=== PATIENT | female | born 1965 | race American Indian/Alaskan Native ===

== ENCOUNTER 2018-08-02 13:50 | Emergency (ER) | payer OTHER ==
[2018-08-02] MEDS ORDERED: CATAPRES ONE (16:39)
--- NOTE | 2018-08-02 16:39 | Emergency Department Report ---
Blank Doc - Documentation Documentation: 53 y o Female presents to ED stating she was taking a client to doctors office when she started feeling lightheaded and they checked her BP and it was high, so whe was sent to ER pt has a pmh of HTN taking medication but has been out of medication for about a month. basic labs ordered needs med refill and PCP referral [facility] jean marie
[2018-08-02 17:27] LABS: Hematocrit 41.6 % (30.3-42.9); Hemoglobin 13.8 gm/dl (10.1-14.3); Mean Corpuscular HGB Conc 33 % (30-34); Mean Corpuscular Volume 88 fl (79-97); Platelet Count 388 K/mm3 (140-440); Red Blood Count 4.74 M/mm3 (3.65-5.03); Red Cell Distribution Width 14.9 % (13.2-15.2)
[2018-08-02 17:37] LABS: Alanine Aminotransferase 10 units/L (7-56); BUN/Creatinine Ratio 23; Blood Urea Nitrogen 18 mg/dL (7-17); Calcium 9.5 mg/dL (8.4-10.2); Hemolysis Index 10
[2018-08-02] MEDS ORDERED: CATAPRES PO ONE (19:27)
--- NOTE | 2018-08-02 19:36 | Emergency Department Report ---
ED General Adult HPI - General Chief complaint: High BP Stated complaint: HIGH BP Time Seen by Provider: 08/02/18 19:17 Source: patient, EMS Mode of arrival: Ambulatory Limitations: No Limitations - History of Present Illness Initial comments: 53 y o Female presents to ED stating she was taking a client to doctors office when she started feeling lightheaded and they checked her BP and it was high, so whe was sent to ER pt has a pmh of HTN taking medication but has been out of medication for about a month. basic labs ordered needs med refill and PCP referral [facility] eval, pt denies cp or sob o diaphoresis no n/v , no back pin, dizziness is exacerbated by activity Onset/Timin -: days(s) Location: head, lower extremity Radiation: extremity Severity scale (0 -10): 5 Quality: other (weakness ) Consistency: constant Improves with: rest Worsens with: movement, other (activity ) Associated Symptoms: headaches, malaise, weakness. denies: confusion, chest pain, cough, diaphoresis, fever/chills, loss of appetite, nausea/vomiting, rash, seizure, shortness of breath, syncope Treatments Prior to Arrival: none - Related Data Previous Rx's Medication Instructions Recorded Last Taken Type Cyclobenzaprine HCl [Flexeril 5 MG 5 mg PO Q8HR #15 tablet 01/21/15 Unknown Rx TAB] Ibuprofen [Motrin 800 MG tab] 800 mg PO Q8HR PRN #30 tablet 01/21/15 Unknown Rx Acetaminophen/Codeine [Tylenol 1 tab PO Q6H PRN #20 tab 05/12/18 Unknown Rx /Codeine # 3 tab] Losartan Potassium 100 mg PO QDAY #30 tablet 05/12/18 Unknown Rx Lisinopril [Zestril TAB] 20 mg PO QDAY #30 tablet 08/02/18 Unknown Rx hydroCHLOROthiazide [HCTZ] 25 mg PO QDAY #30 tablet 08/02/18 Unknown Rx Allergies Allergy/AdvReac Type Severity Reaction Status Date / Time No Known Allergies Allergy Verified 08/02/18 14:06 ED Review of Systems ROS: Stated complaint: HIGH BP Other details as noted in HPI Constitutional: malaise, weakness. denies: chills, fever Eyes: denies: eye pain, eye discharge, vision change ENT: denies: ear pain, throat pain Respiratory: denies: cough, shortness of breath, wheezing Cardiovascular: denies: chest pain, palpitations, dyspnea on exertion, orthopnea, syncope, paroxysmal nocturnal dyspnea Endocrine: no symptoms reported Gastrointestinal: denies: abdominal pain, nausea, vomiting, diarrhea Genitourinary: denies: urgency, dysuria, discharge Musculoskeletal: denies: back pain, joint swelling, arthralgia Skin: denies: rash, lesions Neurological: headache, weakness. denies: numbness, paresthesias, confusion, vertigo Psychiatric: denies: anxiety, depression Hematological/Lymphatic: denies: easy bleeding, easy bruising ED Past Medical Hx - Past Medical History Hx Hypertension: Yes Hx Congestive Heart Failure: No Hx Diabetes: No Hx Asthma: No Hx COPD: No Hx HIV: No - Social History Smoking Status: Current Every Day Smoker Substance Use Type: None - Medications Home Medications: Home Medications Medication Instructions Recorded Confirmed Last Taken Type Cyclobenzaprine HCl [Flexeril 5 MG 5 mg PO Q8HR #15 tablet 01/21/15 Unknown Rx TAB] Ibuprofen [Motrin 800 MG tab] 800 mg PO Q8HR PRN #30 tablet 01/21/15 Unknown Rx Acetaminophen/Codeine [Tylenol 1 tab PO Q6H PRN #20 tab 05/12/18 Unknown Rx /Codeine # 3 tab] Losartan Potassium 100 mg PO QDAY #30 tablet 05/12/18 Unknown Rx Lisinopril [Zestril TAB] 20 mg PO QDAY #30 tablet 08/02/18 Unknown Rx hydroCHLOROthiazide [HCTZ] 25 mg PO QDAY #30 tablet 08/02/18 Unknown Rx ED Physical Exam - General Limitations: No Limitations (fall 0 Vicryl) General appearance: alert, in no apparent distress - Head Head exam: Present: atraumatic, normocephalic, normal inspection - Eye Eye exam: Present: normal appearance, PERRL, EOMI Pupils: Present: normal accommodation - ENT ENT exam: Present: normal orophraynx, mucous membranes moist, TM's normal bilaterally, normal external ear exam - Neck Neck exam: Present: normal inspection, full ROM. Absent: tenderness, meningismus, lymphadenopathy, thyromegaly - Respiratory Respiratory exam: Present: normal lung sounds bilaterally. Absent: wheezes, stridor, chest wall tenderness - Cardiovascular Cardiovascular Exam: Present: regular rate, normal rhythm, normal heart sounds. Absent: systolic murmur, diastolic murmur, rubs, gallop - GI/Abdominal GI/Abdominal exam: Present: soft, normal bowel sounds. Absent: tenderness, guarding, rebound, rigid, bruit, hernia - Rectal Rectal exam: Present: deferred - Extremities Exam Extremities exam: Present: normal inspection, full ROM, normal capillary refill. Absent: tenderness, pedal edema, joint swelling, calf tenderness - Back Exam Back exam: Present: normal inspection, full ROM. Absent: tenderness, CVA tenderness (R), CVA tenderness (L), muscle spasm, paraspinal tenderness, vertebral tenderness, rash noted - Neurological Exam Neurological exam: Present: alert, oriented X3, CN II-XII intact, normal gait, reflexes normal. Absent: abnormal gait, motor sensory deficit - Expanded Neurological Exam Expanded Patient oriented to: Present: person, place, time Speech: Present: fluid speech Cranial nerves: EOM's Intact: Normal, Gag Reflex: Normal, Tongue Deviation: Normal, Nystagmus: Normal, Facial Sensation: Normal Cerebellar function: Finger to Nose: Normal, Heel to [place]: Normal, Romberg: Normal Upper motor neuron: Preston Neglect: Normal, Pronator Drift: Normal, Babinski Sign: Normal, Sensory Extinction: Normal Sensory exam: Upper Extremity Light Touch: Normal, Upper Extremity Pin Prick: Normal, Upper Extremity Temperature: Normal, UE 2 Point Discrimination: Normal, Lower Extremity Light Touch: Normal, Lower Extremity Pin Prick: Normal, Lower Extremity Temperature: Normal, LE 2 Point Discrimination: Normal Motor strength exam: RUE: 5, LUE: 5, RLE: 5, LLE: 5 DTR: bicep (R): 2+ (more so we were), bicep (L): 2+, ankle (R): 2+, ankle (L): 2+ ( examining) Best Eye Response (Ghazal): (4) open spontaneously Best Motor Response (Aledo): (6) obeys commands Best Verbal Response (Ghazal): (5) oriented [place] Total: 15 - Psychiatric Psychiatric exam: Present: normal affect, normal mood - Skin Skin exam: Present: warm, dry, intact, normal color. Absent: rash ED Course Vital Signs 08/02/18 14:52 Temperature 98.8 F Pulse Rate 67 Respiratory 19 Rate Blood Pressure 190/98 [Left] O2 Sat by Pulse 99 Oximetry ED Medical Decision Making - Lab Data Result diagrams: 08/02/18 16:54 08/02/18 16:54 - EKG Data EKG shows normal: sinus rhythm, axis, intervals, QRS complexes, ST-T waves (t w ave inversion in inferior and anterior lateral leads ) Rate: normal - Radiology Data Radiology results: report reviewed, image reviewed Findings [facility] [address] [place] [address] Cat Scan Report Signed Patient: BAILEE INTERIANO MR#: [id number] : 1965 Acct:[id number] Age/Sex: 53 / F ADM Date: 08/02/18 Loc: ED Attending Dr: Ordering Physician: LUIS A RUST NP Date of Service: 08/02/18 Procedure(s): CT head/brain wo con Accession Number(s): [id number] cc: LUIS A RUST NP PROCEDURE: CT HEAD/BRAIN WO CON TECHNIQUE: Computerized tomography of the head was performed without contrast material. CT DOSE LENGTH PRODUCT: 1265.7 mGycm HISTORY: dizziness COMPARISONS: None . FINDINGS: Skull and scalp: Normal . Paranasal sinuses: Normal . Ventricles and subarachnoid spaces: Normal . Cerebrum: An irregular area of encephalomalacia is noted in the right parietal region most likely secondary to an old infarct or hemorrhage. Mild degree nonspecific bilateral cerebral white matter hypodensity is noted most likely representing chronic microangiopathy. An acute intra-axial or extra-axial hemorrhage or mass effect is not identified.. Cerebellum and brainstem: No evidence of hemorrhage, acute infarction or mass . Vasculature: Atherosclerotic calcification is noted involving internal carotid and vertebral arteries. . Other: None . ASPECTS: 10 IMPRESSION: No acute intracranial abnormality. This document is electronically signed by Liza Cutler MD., Aug 02 2018 08:24:26 PM ET Transcribed By: [facility] Dictated By: LIZA CUTLER Electronically Authenticated By: LIZA CUTLER Signed Date/Time: 08/02/182025 DD/ 12 TD/TT: 08/02/182012 Referring Physician: LUIS A RUST Patient Name: BAILEE INTERIANO Date of : 1965 Sex: Female Report Date: 2018-08-02 Report Status: Finalized Findings [facility] [address] [place] [address] XRay Report Signed Patient: BAILEE INTERIANO MR#: [id number] : 1965 Acct:[id number] Age/Sex: 53 / F ADM Date: 08/02/18 Loc: ED Attending Dr: Ordering Physician: LUIS A RUST NP Date of Service: 08/02/18 Procedure(s): XR chest routine 2V Accession Number(s): [id number] cc: LUIS A RUST NP Fluoro Time In Minutes: PROCEDURE: XR CHEST ROUTINE 2V TECHNIQUE: PA and lateral views of the chest HISTORY: weakness COMPARISONS: None FINDINGS: There is prominence of the interstitial markings in both lungs with peribronchial thickening, acute versus chronic. There is no definite evidence of focal infiltrate and no evidence of pneumothorax or pleural fluid collection. The cardiac silhouette is enlarged. The thoracic aorta is mildly tortuous. The bony structures are notable for mild dextrocurvature of the thoracic spine. IMPRESSION: 1. Prominence of the interstitial markings with peribronchial thickening, acute versus chronic. 2. Enlarged cardiac silhouette. This document is electronically signed by Ramona Guardado MD., Aug 02 2018 08:55:02 PM ET Transcribed By: ED Dictated By: RAMONA GUARDADO MD Electronically Authenticated By: RAMONA GUARDADO MD Signed Date/Time: 08/02/182056 DD/ 05 TD/TT: 08/02/182006 08 for, pulmonary symptoms and likely small amount of - Medical Decision Making BP is improved , patient denies chest pain no shortness of breath no nausea vomiting no diaphoresis no specific change from previous EKG normal sinus rhythm with inverted T waves in inferior lateral and anterolateral leads patient had cardiac workup in April 2018 to include carotid Doppler echo EF is 55- 60% , carotid doppler: bilateral carotid stenosis less than 50%, patient has data entry and neurologist but again, is not taking BP medicines she's afraid to take losartan because of a recall, previous tolerance with lisinopril, will refill lisinopril and hydrochlorothiazide , patient will follow up with cardiology and neurology as directed patient will return to ED should symptoms worsen, patient DC'd to home in stable condition at this time. pt is a/o x 3 ambulatory with nad at this time. pain is 0/10 Critical care attestation.: If time is entered above; I have spent that time in minutes in the direct care of this critically ill patient, excluding procedure time. ED Disposition Clinical Impression: HTN (hypertension) Qualifiers: Hypertension type: unspecified Qualified Code(s): I10 - Essential (primary) hypertension Disposition: DC-01 TO HOME OR SELFCARE Is pt being admited?: No Does the pt Need Aspirin: No Condition: Stable Instructions: Hypertension (ED) Prescriptions: hydroCHLOROthiazide [HCTZ] 25 mg PO QDAY #30 tablet Lisinopril [Zestril TAB] 20 mg PO QDAY #30 tablet Referrals: JULIETA MULLER MD [Staff Physician] - 3-5 Days BEVERLY ORELLANA MD [Staff Physician] - 3-5 Days JONATHAN ADDISON MD [Referring] - 3-5 Days Forms: Work/School Release Form(ED) Time of Disposition: 21:18
--- NOTE | 2018-08-02 20:26 | Cat Scan Report ---
PROCEDURE: CT HEAD/BRAIN WO CON TECHNIQUE: Computerized tomography of the head was performed without contrast material. CT DOSE LENGTH PRODUCT: 1265.7 mGycm HISTORY: dizziness COMPARISONS: None . FINDINGS: Skull and scalp: Normal . Paranasal sinuses: Normal . Ventricles and subarachnoid spaces: Normal . Cerebrum: An irregular area of encephalomalacia is noted in the right parietal region most likely sec ondary to an old infarct or hemorrhage. Mild degree nonspecific bilateral cerebral white matter hypod ensity is noted most likely representing chronic microangiopathy. An acute intra-axial or extra-axial hemorrhage or mass effect is not identified.. Cerebellum and brainstem: No evidence of hemorrhage, acute infarction or mass . Vasculature: Atherosclerotic calcification is noted involving internal carotid and vertebral arterie s. . Other: None . ASPECTS: 10 IMPRESSION: No acute intracranial abnormality. This document is electronically signed by Timothy Cutler MD., Aug 02 2018 08:24:26 PM ET
--- NOTE | 2018-08-02 20:57 | XRay Report ---
PROCEDURE: XR CHEST ROUTINE 2V TECHNIQUE: PA and lateral views of the chest HISTORY: weakness COMPARISONS: None FINDINGS: There is prominence of the interstitial markings in both lungs with peribronchial thickening, acute v ersus chronic. There is no definite evidence of focal infiltrate and no evidence of pneumothorax or pleural fluid co llection. The cardiac silhouette is enlarged. The thoracic aorta is mildly tortuous. The bony structures are notable for mild dextrocurvature of the thoracic spine. IMPRESSION: 1. Prominence of the interstitial markings with peribronchial thickening, acute versus chronic. 2. Enlarged cardiac silhouette. This document is electronically signed by Ramona Guardado MD., Aug 02 2018 08:55:02 PM ET
[2018-08-02 21:17] LABS: Bacteria,Urine 1+ /HPF (Negative); Bilirubin,Urine NEG (Negative); Blood,Urine NEG (Negative); Color,Urine Yellow (Yellow); Mucus,Urine FEW /HPF; Protein,Urine <15 mg/dL mg/dL (Negative); Urobilinogen,Urine < 2.0 mg/dL (<2.0)
[2018-08-02] MEDS ORDERED: BENADRYL PO ONE (21:30)
[2018-08-02] MEDS ORDERED: HCTZ PO ONE (21:32)
[2018-08-02] MEDS ORDERED: TYLENOL PO ONE (21:33)
[2018-08-02] MEDS ORDERED: ZESTRIL PO ONE (21:33)
[2018-08-02 22:46] VITALS: BP 183/90
== END 2018-08-02 21:44 | disposition home or self-care (01) ==
LOC: ED 13:50
DX: I10 Essential (primary) hypertension (principal); F17.200 Nicotine dependence, unspecified, uncomplicated
CPT/HCPCS: 36415; 70450; 71046; 80053; 81001; 84484; 85027; 93005; 93010

== ENCOUNTER 2018-08-09 07:45 | Inpatient (IN) | payer SELFPAY ==
--- NOTE | 2018-08-09 07:51 | Emergency Department Report ---
- General Stated complaint: CVA Time Seen by Provider: 08/09/18 07:45 Source: patient Mode of arrival: Stretcher Limitations: Physical Limitation - History of Present Illness Initial comments: Patient is a 53-year-old female that presents emergency room with complaints of worsening left-sided weakness and slurred speech. Patient states she woke up at 4:30 AM with the symptoms. Patient states her last known well time was 11:30 yesterday. Patient states she went to bed normal and woke up with the symptoms. Patient denies chest pain shortness of breath. Patient states that she's had a stroke in the past which left her with some left-sided weakness but this is worse. Patient denies fever and chills. Patient denies blurry vision. MD Complaint: focal weakness -: Sudden Location: LUE, LLE Severity: severe Consistency: constant Improves with: none Worsens with: none Associated Symptoms: denies: chest pain, confusion, dark stools, diaphoresis, dysuria, easy bruising, fever/chills, headaches, loss of appetite, nausea/vomiting, myalgias, rash, syncope - Related Data Previous Rx's Medication Instructions Recorded Last Taken Type Losartan Potassium 100 mg PO QDAY #30 tablet 05/12/18 08/08/18 Rx Allergies Allergy/AdvReac Type Severity Reaction Status Date / Time No Known Allergies Allergy Verified 08/02/18 14:06 ED Review of Systems ROS: Stated complaint: CVA Other details as noted in HPI Constitutional: denies: chills, fever Eyes: denies: eye pain, eye discharge, vision change ENT: denies: ear pain, throat pain Respiratory: denies: cough, shortness of breath, wheezing Cardiovascular: denies: chest pain, palpitations Endocrine: no symptoms reported Gastrointestinal: denies: abdominal pain, nausea, diarrhea Genitourinary: denies: urgency, dysuria, discharge Musculoskeletal: denies: back pain, joint swelling, arthralgia Skin: denies: rash, lesions Neurological: weakness. denies: headache, paresthesias Psychiatric: denies: anxiety, depression Hematological/Lymphatic: denies: easy bleeding, easy bruising ED Past Medical Hx - Past Medical History Previous Medical History?: Yes Hx Hypertension: Yes Hx Congestive Heart Failure: No Hx Diabetes: No Hx Asthma: No Hx COPD: No Hx HIV: No - Surgical History Past Surgical History?: No - Family History Family history: no significant - Social History Smoking Status: Current Every Day Smoker Substance Use Type: None - Medications Home Medications: Home Medications Medication Instructions Recorded Confirmed Last Taken Type Losartan Potassium 100 mg PO QDAY #30 tablet 05/12/18 08/09/18 08/08/18 Rx ED Physical Exam - General Limitations: Physical Limitation General appearance: alert, in no apparent distress - Head Head exam: Present: atraumatic, normocephalic - Eye Eye exam: Present: normal appearance, PERRL Pupils: Present: normal accommodation - ENT ENT exam: Present: mucous membranes moist - Neck Neck exam: Present: normal inspection - Respiratory Respiratory exam: Present: normal lung sounds bilaterally. Absent: respiratory distress - Cardiovascular Cardiovascular Exam: Present: regular rate, normal rhythm. Absent: systolic murmur, diastolic murmur, rubs, gallop - GI/Abdominal GI/Abdominal exam: Present: soft, normal bowel sounds. Absent: distended, tenderness - Rectal Rectal exam: Present: deferred - Extremities Exam Extremities exam: Present: normal inspection - Back Exam Back exam: Present: normal inspection - Neurological Exam Neurological exam: Present: alert, oriented X3 - Psychiatric Psychiatric exam: Present: normal affect, normal mood - Skin Skin exam: Present: warm, dry, intact, normal color. Absent: rash - Assessment Assessment Interval: Baseline - Level of Consciousness 1a. Level of Consciousness: alert/keenly responsive - LOC Questions 1b. LOC Questions: answers both correctly - LOC Command 1c. LOC Commands: performs tasks correctly - Best Gaze 2. Best Gaze: normal - Visual 3. Visual: no visual loss - Facial Palsy 4. Facial Palsy: normal symmetrical movement - Motor Arm 5a. Motor Arm Left: drift 5b. Motor Arm Right: no drift - Motor Leg 6a. Motor Leg Left: some gravity effort 6b. Motor Leg Right: no drift - Limb Ataxia 7. Limb Ataxia: absent - Sensory 8. Sensory: mild/moderate sensory loss - Best Language 9. Best Language: no aphasia - Dysarthria 10. Dysarthria: normal - Extinction and Inattention 11. Extinction/Inattention: no abnormality - Scoring Total Score: 4 Stroke Severity: Minor Stroke ED Course Vital Signs 08/09/18 08/09/18 08/09/18 07:55 09:33 10:02 Temperature 98.3 F Pulse Rate 70 75 Respiratory 16 18 18 Rate Blood Pressure 109/73 Blood Pressure 166/78 [Left] O2 Sat by Pulse 98 98 97 Oximetry 08/09/18 14:00 Temperature Pulse Rate 61 Respiratory 18 Rate Blood Pressure Blood Pressure 181/90 [Left] O2 Sat by Pulse 99 Oximetry - Reevaluation(s) Reevaluation #1: Initial evaluation done. Code stroke initiated. Neurology consult. Patient sent for CT of the head 08/09/18 07:50 Discussed results with patient. No changes in patient. Patient's lungs are clear. 08/09/18 08:45 Reevaluation #2: Stressed all results with patient. Patient will be admitted to the hospitalist service. Patient agrees with plan for admission. 08/09/18 09:52 - Consultations Consultation #1: Discussed case with neurologist. Neurologist recommends admission and MRI with and without contrast, aspirin, inflammatory markers due to the patient's history of vasculitis. Neurologist does not recommend CTA in the ER 08/09/18 08:33 Consultation #2: Hospitalist consultation for admission. Hospitalist to admit patient and assume care of patient. Bridge orders place. 08/09/18 09:52 ED Medical Decision Making - Lab Data Result diagrams: 08/09/18 08:10 08/09/18 08:10 - EKG Data -: EKG Interpreted by Ia EKG shows normal: sinus rhythm, axis, intervals, QRS complexes, ST-T waves Rate: normal - EKG Data When compared to previous EKG there are: no significant change - Radiology Data Radiology results: report reviewed CT HEAD WITHOUT CONTRAST: HISTORY: Neurological deficit, stroke. TECHNIQUE: Sequential 2.5mm CT images. COMPARISON: 08/02/18. FINDINGS: Cerebral Parenchyma: Chronic infarct in the right parietal region measuring 2.1 x 1.4 cm is again noted. There are smaller areas of cortical encephalomalacia in the anterior frontal lobes bilaterally. This may be secondary to chronic ischemic infarct or trauma. The remaining brain parenchyma is unremarkable. Mild nonspecific chronic white matter changes are noted in stable. Cerebellum: Within normal limits. Brainstem: Within normal limits. Ventricles: Normal. Sella: Normal. Extra-axial spaces: Normal. Basal Cisterns: Normal. Intracranial Hemorrhage: None. Midline Shift: None. Calvarium: Normal. Sinuses: Normal. Mastoid Air Cells: Normal. Visualized Orbits: Normal. IMPRESSION: No acute intracranial process. Focal chronic infarct/encephalomalacia as described above. Mild nonspecific chronic white matter changes. - Medical Decision Making Is a 53-year-old female Emergency room with left-sided weakness. Culture gram. Neurologist consult for the patient. Neurology believes this is secondary to a vasculitis or worsening of her previous strokes. Patient's initial symptom was worsening left-sided weakness and difficulty speaking. Patient's head CT showed old strokes but no acute findings. Labs unremarkable. Patient admitted to the hospitalist service. Patient will require further neurologic evaluation and further diagnostics. - Differential Diagnosis vasculitis. CVA. Weakness. Dysarthria. Worsening old stroke Critical Care Time: Yes Critical care attestation.: If time is entered above; I have spent that time in minutes in the direct care of this critically ill patient, excluding procedure time. Critical Care Time: 35 minutes ED Disposition Clinical Impression: Left leg weakness, Weakness HTN (hypertension) Qualifiers: Hypertension type: essential hypertension Qualified Code(s): I10 - Essential (primary) hypertension Disposition: 09 OP ADMIT IP TO THIS HOSP Is pt being admited?: Yes Does the pt Need Aspirin: No Condition: Critical Time of Disposition: 09:52
--- NOTE | 2018-08-09 08:04 | Cat Scan Report ---
CT HEAD WITHOUT CONTRAST: HISTORY: Neurological deficit, stroke. TECHNIQUE: Sequential 2.5mm CT images. COMPARISON: 08/02/18. FINDINGS: Cerebral Parenchyma: Chronic infarct in the right parietal region measuring 2.1 x 1.4 cm is again noted. There are smaller areas of cortical encephalomalacia in the anterior frontal lobes bilaterally. This may be secondary to chronic ischemic infarct or trauma. The remaining brain parenchyma is unremarkable. Mild nonspecific chronic white matter changes are noted in stable. Cerebellum: Within normal limits. Brainstem: Within normal limits. Ventricles: Normal. Sella: Normal. Extra-axial spaces: Normal. Basal Cisterns: Normal. Intracranial Hemorrhage: None. Midline Shift: None. Calvarium: Normal. Sinuses: Normal. Mastoid Air Cells: Normal. Visualized Orbits: Normal. IMPRESSION: No acute intracranial process. Focal chronic infarct/encephalomalacia as described above. Mild nonspecific chronic white matter changes. These findings were discussed with Dr. Herrmann in the emergency department at 0755 hours.
[2018-08-09 08:27] LABS: Basophils # (Auto) 0.1 K/mm3 (0.0-0.1); Basophils % (Auto) 1.2 % (0.0-1.8); Eosinophils # (Auto) 0.2 K/mm3 (0.0-0.4); Hematocrit 40.2 % (30.3-42.9); Hemoglobin 13.6 gm/dl (10.1-14.3); Lymphocytes # (Auto) 1.4 K/mm3 (1.2-5.4); Lymphocytes % (Auto) 24.5 % (13.4-35.0); Mean Corpuscular HGB Conc 34 % (30-34); Mean Corpuscular Volume 86 fl (79-97); Monocytes # (Auto) 0.4 K/mm3 (0.0-0.8); Monocytes % (Auto) 7.6 % (0.0-7.3); Platelet Count 379 K/mm3 (140-440); Red Blood Count 4.66 M/mm3 (3.65-5.03); Red Cell Distribution Width 14.5 % (13.2-15.2)
[2018-08-09 08:38] LABS: INR 0.95 (0.87-1.13)
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
[2018-08-09 08:40] LABS: Partial Thromboplastin Time 35.9 Sec. (24.2-36.6)
[2018-08-09] MEDS ORDERED: ASPIRIN PO ONE (08:49)
[2018-08-09 09:04] LABS: BUN/Creatinine Ratio 20; Blood Urea Nitrogen 10 mg/dL (7-17); Calcium 9.2 mg/dL (8.4-10.2); Hemolysis Index 4
--- NOTE | 2018-08-09 09:52 | History and Physical Report ---
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 Patient states that she went to bed normal at night and woke up with the symptoms at 4:30 AM. Patient denies any chest pain shortness of breath, denies fever and chills, no blurry vision. She was evaluated by tele neurology in the ER and recommended to get admitted for further evaluation for possible acute CVA. - Past Medical History Previous Medical History?: Yes Hx Hypertension: Yes Hx Congestive Heart Failure: No Hx Diabetes: No Hx Asthma: No Hx COPD: No Hx HIV: No - Surgical History Past Surgical History?: No - Family History Family history: HTN - Social History Smoking Status: Current Every Day Smoker Substance Use Type: Intermittently smokes marijuana Alcohol abuse: Intermittently drinks alcohol ROS: Constitutional: denies: chills, fever Eyes: denies: eye pain, eye discharge, vision change ENT: denies: ear pain, throat pain Respiratory: denies: cough, shortness of breath, wheezing Cardiovascular: denies: chest pain, palpitations Endocrine: no symptoms reported Gastrointestinal: denies: abdominal pain, nausea, diarrhea Genitourinary: denies: urgency, dysuria, discharge Musculoskeletal: denies: back pain, joint swelling, arthralgia Skin: denies: rash, lesions Neurological: weakness leftside. denies: headache, paresthesias Psychiatric: denies: anxiety, depression Hematological/Lymphatic: denies: easy bleeding, easy bruising Medications and Allergies Allergies Allergy/AdvReac Type Severity Reaction Status Date / Time No Known Allergies Allergy Verified 08/02/18 14:06 Home Medications Medication Instructions Recorded Confirmed Last Taken Type Losartan Potassium 100 mg PO QDAY #30 tablet 05/12/18 08/09/18 08/08/18 Rx Aspirin [Aspirin BABY CHEW TAB] 81 mg PO DAILY #30 tab.chew 08/10/18 Unknown Rx AtorvaSTATin [Lipitor] 40 mg PO QHS #30 tab 08/10/18 Unknown Rx Losartan [Cozaar] 100 mg PO QDAY #30 tablet 05/16/19 Unknown Rx amLODIPine [Norvasc] 10 mg PO DAILY #30 tab 08/10/18 Unknown Rx Exam - Physical Exam Narrative exam: GENERAL: well-developed and well-nourished female lying on bed appeared to be in no discomfort. HEENT: Normocephalic. Atraumatic. No conjunctival congestion or icterus. Patient has moist mucous membranes. NECK: Supple. Trachea midline. CHEST/LUNGS: Clear to auscultated bilaterally, breathing nonlabored. No wheezes crackles or rhonchi. HEART/CARDIOVASCULAR: Regular in rate and rhythm. S1 and S2 positive. ABDOMEN: Abdomen is soft, nontender. Patient has normal bowel sounds. SKIN: There is no rash. Warm and dry. NEURO: Left-sided weakness. Follows command. MUSCULOSKELETAL: No joint effusion or tenderness. EXTRIMITY: No edema, no cyanosis or clubbing. PSYCH: Cooperative. - Constitutional Vitals: Temp Pulse Resp BP Pulse Ox 98.3 F 70 18 109/73 98 08/09/18 07:55 08/09/18 07:55 08/09/18 09:33 08/09/18 07:55 08/09/18 09:33 Results - Labs CBC & Chem 7: 08/09/18 08:10 08/09/18 08:10 Labs: Abnormal lab results 08/09/18 08/09/18 Range/Units 08:10 08:10 Mcdonald % (Auto) 7.6 H (0.0-7.3) % Creatinine 0.5 L (0.7-1.2) mg/dL Glucose 124 H (65-100) mg/dL - Imaging and Cardiology CT Scan - head: report reviewed Assessment and Plan /Possible acute CVA versus vasculitis versus demyelinating disease - - We will admit the patient to remote telemetry - We'll place on aspirin and statin, will consult neurology - CT scan of the head obtained in the ER and shows Focal chronic infarct/encephalomalacia but no acute changes - We will get MRI of the brain, MRA head, carotid Doppler, 2-D echocardiogram - We will also get hemoglobin A1c level and fasting lipid panel - Allow permissive hypertension, will hold BP meds for 24 hours if patient is ta sergio any at home - We'll place on GI prophylaxis to avoid stress ulcer - Place on DVT prophylaxis - Consult PTOT and speech therapist - Keep the patient nothing by mouth for now until clearance by speech therapy - Further management will be based on pending lab results and imaging studies /Ongoing tobacco use; smoking cessation Advised nicotine patch as needed /Alcohol use; strongly advised to quit /Marijuana use; strongly advised to quit /Hypertension; moderate control continue current antihypertensives Radiological data: CT head: No acute intracranial process. Focal chronic infarct/encephalomalacia as described above. Mild nonspecific chronic white matter changes.
[2018-08-09] MEDS ORDERED: MILK OF MAGNESIA PO PRN (13:40)
[2018-08-09] MEDS ORDERED: TYLENOL PO PRN (13:40)
[2018-08-09] MEDS ORDERED: ZOFRAN IV PRN (13:40)
[2018-08-09] MEDS ORDERED: PHENERGAN PR PRN (13:40)
[2018-08-09] MEDS ORDERED: DULCOLAX PR PRN (13:40)
[2018-08-09] MEDS ORDERED: REGLAN PO PRN (13:40)
[2018-08-09] MEDS ORDERED: SODIUM CHLORIDE FLUSH SYRINGE 10 ML IV PRN (13:40)
[2018-08-09] MEDS ORDERED: ATIVAN IV ONE (15:18)
[2018-08-09] MEDS ORDERED: ATIVAN ONE (16:43)
--- NOTE | 2018-08-09 17:13 | Consultation ---
History of Present Illness Consult date: 08/09/18 Chief complaint: left sided weakness History of present illness: This is a 53 YO F with history of stroke who presented with worse left sided w eakness since 4:30 AM. Pt presented out of the window for lytics. On my arrival pt says she is feeling much better, only complaint is she wants to eat. Past History Past Medical History: hypertension, stroke Past Surgical History: No surgical history Social history: smoking Family history: hypertension Medications and Allergies Allergies Allergy/AdvReac Type Severity Reaction Status Date / Time No Known Allergies Allergy Verified 08/02/18 14:06 Home Medications Medication Instructions Recorded Confirmed Last Taken Type Losartan Potassium 100 mg PO QDAY #30 tablet 05/12/18 08/09/18 08/08/18 Rx Active Meds: Active Medications Acetaminophen (Tylenol) 650 mg PO Q4H PRN PRN Reason: Pain, Mild (1-3) Aspirin (Ecotrin) 325 mg PO QDAY MIRNA Atorvastatin Calcium (Lipitor) 80 mg PO QHS MIRNA Bisacodyl (Dulcolax) 10 mg IA QDAY PRN PRN Reason: Constipation Famotidine (Pepcid) 20 mg PO BID MIRNA Losartan Potassium (Cozaar) 100 mg PO QDAY MIRNA Magnesium Hydroxide (Milk Of Magnesia) 30 ml PO Q4H PRN PRN Reason: Constipation Metoclopramide HCl (Reglan) 10 mg PO Q6H PRN PRN Reason: Nausea And Vomiting Ondansetron HCl (Zofran) 4 mg IV Q8H PRN PRN Reason: Nausea And Vomiting Promethazine HCl (Phenergan) 25 mg IA Q6H PRN PRN Reason: Nausea And Vomiting Sodium Chloride (Sodium Chloride Flush Syringe 10 Ml) 10 ml IV PRN PRN PRN Reason: LINE FLUSH Review of Systems Neurological: weakness Physical Examination - Vital Signs Vital Signs: Vital Signs Temp Pulse Resp BP Pulse Ox 98.3 F 70 16 109/73 98 08/09/18 07:55 08/09/18 07:55 08/09/18 07:55 08/09/18 07:55 08/09/18 07:55 - Constitutional General appearance: comfortable - EENT EENT: Present: ATNC, mucous membranes moist - Respiratory Respiratory: Present: lungs clear - Cardiovascular Cardiovascular: Present: regular rate - Gastrointestinal Gastrointestinal: Present: normoactive bowel sounds - Integumentary Integumentary: Present: normal - Neurologic Cranial nerve examination: PERRL, EOMI, V1/V2/V3 grossly intact, face symmetric, tongue midline Speech examination: intact Sensorimotor examination: intact Motor examination - right side: 5/5: biceps, triceps, wrist flexion, wrist extension, negative cutter, hip flexors, knee extensors, dorsiflexion, toe extension (EHL), plantarflexion Motor examination - left side: 4/5: hip flexors, 5/5: biceps, triceps, wrist flexion, wrist extension, negative cutter, knee extensors, dorsiflexion, toe extension (EHL), plantarflexion Reflexes: 1+: ankle, bicep, knee, tricep Results - Laboratory Findings CBC and BMP: 08/09/18 08:10 08/09/18 08:10 Abnormal Lab Findings: Abnormal Labs 08/09/18 08/09/18 08:10 08:10 Mccracken % (Auto) 7.6 H Creatinine 0.5 L Glucose 124 H - Diagnostic Findings Additional findings: CT head encephalopmalacia right parietal, nothing acute Assessment and Plan This is a 53 YO F with worsening left sided weakness, decompensation of previous stroke vs new storke REcommend: MRI/A head, echo , carotids, PT/OT/ST, VTE prophylaxis, permissive htn x 24 hrs, LDL and A1c, Continue care for all medical issues as you are doing Aspirin and statin
[2018-08-09] MEDS: PEPCID PO SCH (21:56)
--- NOTE | 2018-08-09 22:50 | Magnetic Resonance Report ---
PROCEDURE: MR BRAIN WO CON TECHNIQUE: Magnetic resonance imaging of the brain was performed without contrast material. HISTORY: cva COMPARISONS: None . FINDINGS: Skull base and calvarium: Normal . Paranasal sinuses: The visualized paranasal sinuses are clear. Cerebellum: No evidence of hemorrhage, ischemia or mass . Brainstem: No evidence of hemorrhage, ischemia or mass . Cerebrum: No evidence of hemorrhage, acute ischemia or mass . There is focal encephalomalacia in the right parietal lobe suggesting old infarct. There is chronic periventricular deep white matter ische sage gliosis. Diffusion images demonstrate no evidence of acute ischemic event. There is bilateral fro ntal encephalomalacia which could be due to old trauma. Ventricles: There is central and cortical atrophy. There is no hydrocephalus or asymmetry. . Pituitary gland and sella: Normal . Globes and orbits: Normal . Vasculature: Normal arterial and venous flow voids. IMPRESSION: There is focal encephalomalacia in the right parietal lobe suggesting old infarct. There is chronic p eriventricular deep white matter ischemic gliosis. Diffusion images demonstrate no evidence of acute ischemic event. There is bilateral frontal encephalomalacia which could be due to old trauma. There is central and cortical atrophy. There is no hydrocephalus or asymmetry. . . This document is electronically signed by Noble Stock MD., Aug 09 2018 10:48:52 PM ET
--- NOTE | 2018-08-09 22:56 | Magnetic Resonance Report ---
PROCEDURE: MR MRA/MRV HEAD WO CON TECHNIQUE: Axial 3-D [id number] MR angiography of the [place] and brain was performed. The source images were reconstructed in various views using maximum intensity projection. HISTORY: cva COMPARISONS: None . FINDINGS: Vertebral arteries: Normal . Basilar artery: Normal . Internal carotid arteries: Normal . Anterior cerebral arteries: Normal . Middle cerebral arteries: There is intracranial atherosclerosis of the middle cerebral arteries with out significant stenosis. There is no occlusion. . Posterior cerebral arteries: Normal . Branch occlusions: None . Vascular malformations: None . IMPRESSION: There is intracranial atherosclerosis of the middle cerebral arteries without significant stenosis. T here is no occlusion. There is no aneurysm or vascular malformation.. This document is electronically signed by Noble Stock MD., Aug 09 2018 10:54:05 PM ET
[2018-08-10 08:21] LABS: Chol/HDL Ratio 3.44 %
[2018-08-10] MEDS ORDERED: ECOTRIN PO SCH (10:00)
[2018-08-10] MEDS ORDERED: COZAAR PO SCH (10:00)
[2018-08-10] MEDS ORDERED: NON-FORMULARY (Losartan Potassium [Losartan Potassium] 100 MG) PO SCH (10:00)
[2018-08-10] MEDS: PEPCID PO SCH (11:43)
[2018-08-10 12:46] LABS: Amphetamine Screen,Urine PRESUMPTIVE NEGATIVE; Benzodiazepines Screen,Urine PRESUMPTIVE NEGATIVE; Cannabinoid Screen,Urine PRESUMPTIVE NEGATIVE; Methadone Screen,Urine PRESUMPTIVE NEGATIVE; Opiate Screen,Urine PRESUMPTIVE NEGATIVE
--- NOTE | 2018-08-10 13:12 | Discharge Summary ---
Providers - Providers Date of Admission: 08/09/18 09:52 Date of discharge: 08/10/18 Attending physician: CHILO QUINTANA 08/09/18 13:39 Consult to Physician [CONS] Routine Comment: Consulting Provider: SELVIN BAILEY Physician Instructions: Reason For Exam: cva 08/09/18 13:40 Consult to Case Management [CONS] Routine Services Needed at Discharge: Home Health Services Notified:: case management Occupational Therapy Evaluate and Treat [CONS] Routine Comment: Reason For Exam: Neuro deficits Physical Therapy Evaluation and Treat [CONS] Routine Comment: Reason For Exam: Neuro deficits Hospitalization Condition: Stable Hospital course: Patient is a 53-year-old female with a history of hypertension, 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 Patient states that she went to bed normal at night and woke up with the symptoms at 4:30 AM. She was evaluated by tele neurology in the ER and recommended to get admitted for further evaluation for possible acute CVA. Neurology consulted, obtained MRI of the brain, MRA head: showed no acute CVA. She was then discharged in stable condition with outpt followup and recommended to be compliant with meds. Radiological data: CT head: No acute intracranial process. Focal chronic infarct/encephalomalacia as described above. Mild nonspecific chronic white matter changes. MRA brain: There is intracranial atherosclerosis of the middle cerebral arteries without significant stenosis. There is no occlusion. There is no aneurysm or vascular malformation.. MRI brain: There is focal encephalomalacia in the right parietal lobe suggesting old infarct. There is chronic periventricular deep white matter ischemic gliosis. Diffusion images demonstrate no evidence of acute ischemic event. There is bilateral frontal encephalomalacia which could be due to old trauma. There is central and cortical atrophy. There is no hydrocephalus or asymmetry. . . 2d echo preserved EF carotid doppler ; Discharge diagnosis and management: /Possible TIA - admited the patient to remote telemetry - placed on aspirin and statin, consulted neurology - CT scan of the head obtained in the ER and shows no acute process - obtained MRI of the brain, MRA head: showed no acute CVA, s/p carotid Doppler no acute stenosis in ICA, 2-D echocardiogram with preserved EF - Normal hemoglobin A1c level and fasting lipid panel - had workup for vasculitis during previous admission and was normal - Allowed permissive hypertension for 24 hours - patient will do further f/u outpt - recommended compliance with medications /Ongoing tobacco use; smoking cessation Advised nicotine patch as needed /Alcohol use; strongly advised to quit /Marijuana use; strongly advised to quit /Hypertension; continue losartan, added norvasc Disposition: DC-01 TO HOME OR SELFCARE Time spent for discharge: 34 minutes Core Measure Documentation - Palliative Care Palliative Care/ Comfort Measures: Not Applicable - Core Measures Any of the following diagnoses?: stroke - Stroke Discharge Requirements Statin for LDL = or >70 mg/dl on DC: Yes Anticoag for atrial fib/atrial flutter: Not Applicable Antithrombotic for ischemic stroke: Yes Exam - Physical Exam Narrative exam: GENERAL: well-developed and well-nourished female lying on bed appeared to be in no discomfort. HEENT: Normocephalic. Atraumatic. No conjunctival congestion or icterus. Patient has moist mucous membranes. NECK: Supple. Trachea midline. CHEST/LUNGS: Clear to auscultated bilaterally, breathing nonlabored. No wheezes crackles or rhonchi. HEART/CARDIOVASCULAR: Regular in rate and rhythm. S1 and S2 positive. ABDOMEN: Abdomen is soft, nontender. Patient has normal bowel sounds. SKIN: There is no rash. Warm and dry. NEURO: Left-sided weakness at her baseline. Follows command. able to ambulate MUSCULOSKELETAL: No joint effusion or tenderness. EXTRIMITY: No edema, no cyanosis or clubbing. PSYCH: Cooperative. - Constitutional Vitals: Temp Pulse Resp BP Pulse Ox 98.1 F 57 L 20 171/97 98 08/10/18 09:00 08/10/18 11:43 08/10/18 11:59 08/10/18 11:43 08/10/18 10:00 Plan Activity: advance as tolerated Weight Bearing Status: Weight Bear as Tolerated Diet: low fat, low salt Follow up with: [facility] [Other] - 3-5 Days FRANKLIN GARRISON MD [Staff Physician] - 7 Days Prescriptions: AtorvaSTATin [Lipitor] 40 mg PO QHS #30 tab Aspirin [Aspirin BABY CHEW TAB] 81 mg PO DAILY #30 tab.chew Losartan [Cozaar] 100 mg PO QDAY #30 tablet amLODIPine [Norvasc] 10 mg PO DAILY #30 tab
[2018-08-10 13:14] LABS: Cocaine Screen,Urine PRESUMPTIVE POSITIVE
[2018-08-10] MEDS ORDERED: NORVASC PO SCH (14:00)
--- NOTE | 2018-08-10 15:50 | Vascular Lab Report ---
PROCEDURE: VL CAROTID DUPLEX BILAT TECHNIQUE: Carotid duplex Doppler ultrasound. Grayscale, color flow and spectral waveform images wer e obtained. HISTORY: CVA COMPARISON: None FINDINGS: There is a mild to moderate degree of atherosclerotic plaque in ICAs bilaterally. There is no abnorma l elevation in flow velocity seen. Findings indicate no stenosis of hemodynamic significance (less th an 50% stenosis). Vertebral artery flow is antegrade bilaterally. A nonenlarged lymph nodes seen in the right carotid region measuring 1.3 x 1.0 x 0.6 cm. IMPRESSION: No evidence of any stenosis of hemodynamic significance. This document is electronically signed by Tonia Markham MD., Aug 10 2018 03:47:59 PM ET
[2018-08-10 18:47] VITALS: BP 184/92
== END 2018-08-10 19:08 | disposition home or self-care (01) | DRG 69 ==
LOC: ED 07:45 → 4A 09:52
PROVIDERS: ADMIT Internal Medicine; ATTEND Internal Medicine
DX: G45.9 Transient cerebral ischemic attack, unspecified (principal); F17.200 Nicotine dependence, unspecified, uncomplicated; F12.90 Cannabis use, unspecified, uncomplicated; I10 Essential (primary) hypertension; Z71.6 Tobacco abuse counseling; Z72.89 Other problems related to lifestyle; Z71.41 Alcohol abuse counseling and surveillance of alcoholic; Z71.51 Drug abuse counseling and surveillance of drug abuser; Z82.49 Family history of ischemic heart disease and other diseases of the circulatory system; Z79.899 Other long term (current) drug therapy
CPT/HCPCS: 36415; 70450; 70544; 70551; 80048; 80061; 80307; 82962; 83036; 84484; 85025; 85610; 85652; 85670; 85730; 86140; 93005; 93010; 93308; 93321; 93325; 93880; 96374; 99291; 99406; G0378; A9270-GY; J2060

== ENCOUNTER 2019-02-28 14:04 | Emergency (ER) | payer SELFPAY ==
--- NOTE | 2019-02-28 14:13 | Emergency Department Report ---
Blank Doc - Documentation Documentation: 53-year-old female that presents with diffuse headache with right leg pain. HX of CVA. Denies any weakness. Denies any facial drooping. Started last night. Exam: neuro exam within normal limits. normal strength. No facial drooping. This initial assessment/diagnostic orders/clinical plan/treatment(s) is/are subject to change based on patient's health status, clinical progression and re- assessment by fellow clinical providers in the ED. Further treatment and workup at subsequent clinical providers discretion. Patient/guardians urged not to elope from the ED as their condition may be serious if not clinically assessed and managed. Initial orders include: 1- Patient sent to MAIN ED for further evaluation and treatment 2- labs 3- CT head 4- UA
[2019-02-28] MEDS ORDERED: BUTALB/ACETAMINOPHEN/CAFFEINE TAB PO ONE (14:57)
[2019-02-28] MEDS ORDERED: METOCLOPRAMIDE 10 MG/2 ML INJ IV ONE (14:57)
[2019-02-28] MEDS ORDERED: LIDOCAINE (4%) 40 MG/ML TOPICAL SOLN 50 ML BOTTLE TP ONE (14:57)
[2019-02-28] MEDS ORDERED: diphenhydrAMINE 50 MG/ML VIAL IV ONE (14:57)
[2019-02-28] MEDS ORDERED: MAGNESIUM SULFATE 2 GM/50 ML BAG IV ONE (14:57)
--- NOTE | 2019-02-28 14:58 | Emergency Department Report ---
ED General Adult HPI - General Chief complaint: Neuro Symptoms/Deficit Stated complaint: HEADACHE/WEAKNESS IN LEGS Time Seen by Provider: 02/28/19 14:09 Source: patient, RN notes reviewed, old records reviewed Mode of arrival: Ambulatory Limitations: No Limitations - History of Present Illness Initial comments: The patient is a 53-year-old female. This patient is not known to this provider previously. 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 She also has a history of cannabis consumption. Patient admitted to this hospital July 2018 for strokelike symptoms. She had a negative MRI of the brain for acute ischemia. She had a normal 2-D echo, an unremarkable carotid Doppler, and was diagnosed with probable TIA. She was advised to discontinue alcohol consumption, discontinue marijuana consumption, stop smoking, her medications were adjusted, and she was subsequently discharged. Today, the patient presents to the ER with a complaint of headache and "wobbly legs." The headache is frontal and occipital. The headache started yesterday. The headache is not sudden or thunderclap in nature. It did not reach maximal intensity within an hour. It is waxing and waning. It is not the most intense headache of her life. The patient describes her extremity complaint is "my legs gave out on me." She denies focal extremity weakness, numbness, bladder or bowel retention, incontinence, saddle anesthesia, and she makes no complaints of new or different right leg weakness. -: Gradual Location: face Quality: aching Consistency: intermittent Improves with: none Worsens with: none - Related Data Previous Rx's Medication Instructions Recorded Last Taken Type Losartan Potassium 100 mg PO QDAY #30 tablet 05/12/18 08/08/18 Rx Aspirin [Aspirin BABY CHEW TAB] 81 mg PO DAILY #30 tab.chew 02/28/19 Unknown Rx AtorvaSTATin [Lipitor] 40 mg PO QHS #30 tab 02/28/19 Unknown Rx Losartan [Cozaar] 100 mg PO QDAY #30 tablet 02/28/19 Unknown Rx amLODIPine 10 mg PO DAILY #30 tab 02/28/19 Unknown Rx Allergies Allergy/AdvReac Type Severity Reaction Status Date / Time No Known Allergies Allergy Verified 08/02/18 14:06 ED Review of Systems ROS: Stated complaint: HEADACHE/WEAKNESS IN LEGS Other details as noted in HPI Constitutional: denies: fever Eyes: denies: eye discharge ENT: denies: congestion Respiratory: denies: wheezing Cardiovascular: denies: syncope Gastrointestinal: denies: abdominal pain Genitourinary: denies: urgency Musculoskeletal: denies: back pain Skin: denies: lesions Neurological: headache, weakness. denies: numbness, paresthesias, confusion, a bnormal gait ED Past Medical Hx - Past Medical History Previous Medical History?: Yes Hx Hypertension: Yes Hx Congestive Heart Failure: No Hx Diabetes: No Hx Asthma: No Hx COPD: No Hx HIV: No - Surgical History Past Surgical History?: No - Social History Smoking Status: Current Every Day Smoker Substance Use Type: Alcohol - Medications Home Medications: Home Medications Medication Instructions Recorded Confirmed Last Taken Type Losartan Potassium 100 mg PO QDAY #30 tablet 05/12/18 08/09/18 08/08/18 Rx Aspirin [Aspirin BABY CHEW TAB] 81 mg PO DAILY #30 tab.chew 02/28/19 Unknown Rx AtorvaSTATin [Lipitor] 40 mg PO QHS #30 tab 02/28/19 Unknown Rx Losartan [Cozaar] 100 mg PO QDAY #30 tablet 02/28/19 Unknown Rx amLODIPine 10 mg PO DAILY #30 tab 02/28/19 Unknown Rx ED Physical Exam - General Limitations: No Limitations General appearance: alert, in no apparent distress - Head Head exam: Present: atraumatic, normocephalic - Eye Eye exam: Present: normal appearance, PERRL, EOMI, other (visual acuity intact to finger counting, color perception, and reading at the close distance). Absent: nystagmus - ENT ENT exam: Present: normal exam, normal orophraynx, mucous membranes moist, normal external ear exam - Neck Neck exam: Present: normal inspection, full ROM. Absent: tenderness, meningismus - Respiratory Respiratory exam: Present: normal lung sounds bilaterally. Absent: respiratory distress - Cardiovascular Cardiovascular Exam: Present: regular rate, normal rhythm, normal heart sounds. Absent: bradycardia, tachycardia, irregular rhythm, systolic murmur, diastolic murmur, rubs, gallop - GI/Abdominal GI/Abdominal exam: Present: soft. Absent: distended, tenderness, guarding, rebound, rigid, pulsatile mass - Extremities Exam Extremities exam: Present: normal inspection, full ROM, other (2+ pulses noted in the bilateral upper and lower extremities. There is no palpable cord. negative Homans sign. Muscular compartments are soft. The pelvis is stable.). Absent: pedal edema, joint swelling, calf tenderness - Back Exam Back exam: Present: normal inspection, full ROM. Absent: tenderness, CVA tenderness (R), CVA tenderness (L) - Neurological Exam Neurological exam: Present: alert, oriented X3, normal gait, other (there is no facial droop. The tongue is midline. Extraocular movements are intact bilatera lly. There is 5 out of 5 strength in bilateral upper and lower extremities. Sensation is intact to light touch bilateral upper and lower extremities. There is no past-pointing. There is no pronator drift. There is normal [id number]. There is a normal gait.). Absent: motor sensory deficit - Psychiatric Psychiatric exam: Present: anxious - Skin Skin exam: Present: warm, dry, intact, normal color. Absent: rash ED Course Vital Signs 02/28/19 02/28/19 02/28/19 14:09 15:12 15:41 Temperature 97.6 F Pulse Rate 77 Respiratory 18 17 16 Rate Blood Pressure 186/94 O2 Sat by Pulse 100 Oximetry 02/28/19 02/28/19 02/28/19 15:46 16:00 16:16 Temperature Pulse Rate 71 71 68 Respiratory 15 16 17 Rate Blood Pressure 146/85 138/82 138/82 O2 Sat by Pulse 97 95 97 Oximetry 02/28/19 02/28/19 02/28/19 16:30 16:46 17:12 Temperature Pulse Rate 66 89 89 Respiratory 17 28 H Rate Blood Pressure 138/82 138/82 138/82 O2 Sat by Pulse 97 93 Oximetry 02/28/19 02/28/19 17:13 17:30 Temperature Pulse Rate 89 69 Respiratory 14 Rate Blood Pressure 138/82 138/82 O2 Sat by Pulse 96 Oximetry - Reevaluation(s) Reevaluation #1: 02/28/19 16:34 Differential diagnosis, including not limited to: Migraine headache, tension headache, cluster headache, medication noncompliance Assessment and plan: 53-year-old female with a complaint of nonspecific headache, and her legs giving out on her. She is afebrile with reassuring vital signs, with the exception of elevated blood pressure. She has requested a refill on her blood pressure medication. Her neurologic examination is unremarkable, she is clinically sober, GCS of 15, NIH score of 0. CT scan of the brain is negative for acute disease. The patient was treated supportively and symptomatically. She is currently resting comfortable me on her stretcher, and in no acute distress. EKG unchanged from prior. We will refill the patient's medications at her request. There are no irritative or obstructive urinary symptoms, and she is clinically sober at this time. Reevaluation #2: 02/28/19 17:04 Vital signs unremarkable. Laboratory studies unremarkable. Resting comfortably, and in no acute distress. Suitable for discharge at this point in time. Importance of lifestyle modifications is conveyed to the patient in written instruction, she will need to follow-up as an outpatient with primary care and/or neurology. ED Medical Decision Making - Lab Data Result diagrams: 02/28/19 15:28 02/28/19 15:28 Vital Signs 02/28/19 02/28/19 02/28/19 14:09 15:12 15:41 Temperature 97.6 F Pulse Rate 77 Respiratory 18 17 16 Rate Blood Pressure 186/94 O2 Sat by Pulse 100 Oximetry Vital Signs 02/28/19 02/28/19 02/28/19 14:09 15:12 15:41 Temperature 97.6 F Pulse Rate 77 Respiratory 18 17 16 Rate Blood Pressure 186/94 O2 Sat by Pulse 100 Oximetry Lab Results 02/28/19 Range/Units 15:28 WBC 6.9 (4.5-11.0) K/mm3 RBC 4.94 (3.65-5.03) M/mm3 Hgb 14.3 (10.1-14.3) gm/dl Hct 43.4 H (30.3-42.9) % MCV 88 (79-97) fl MCH 29 (28-32) pg MCHC 33 (30-34) % RDW 14.4 (13.2-15.2) % Plt Count 343 (140-440) K/mm3 Lymph % (Auto) 23.7 (13.4-35.0) % [place] % (Auto) 5.6 (0.0-7.3) % Eos % (Auto) 1.8 (0.0-4.3) % Baso % (Auto) 0.9 (0.0-1.8) % Lymph # 1.6 (1.2-5.4) K/mm3 [place] # 0.4 (0.0-0.8) K/mm3 Eos # 0.1 (0.0-0.4) K/mm3 Baso # 0.1 (0.0-0.1) K/mm3 Seg Neutrophils % 68.0 (40.0-70.0) % Seg Neutrophils # 4.7 (1.8-7.7) K/mm3 Vital Signs 02/28/19 02/28/19 02/28/19 14:09 15:12 15:41 Temperature 97.6 F Pulse Rate 77 Respiratory 18 17 16 Rate Blood Pressure 186/94 O2 Sat by Pulse 100 Oximetry 02/28/19 02/28/19 02/28/19 15:46 16:00 16:16 Temperature Pulse Rate 71 71 68 Respiratory 15 16 17 Rate Blood Pressure 146/85 138/82 138/82 O2 Sat by Pulse 97 95 97 Oximetry 02/28/19 02/28/19 16:30 16:46 Temperature Pulse Rate 66 89 Respiratory 17 28 H Rate Blood Pressure 138/82 138/82 O2 Sat by Pulse 97 93 Oximetry Lab Results 02/28/19 02/28/19 02/28/19 Range/Units 15:28 15:28 15:28 WBC 6.9 (4.5-11.0) K/mm3 RBC 4.94 (3.65-5.03) M/mm3 Hgb 14.3 (10.1-14.3) gm/dl Hct 43.4 H (30.3-42.9) % MCV 88 (79-97) fl MCH 29 (28-32) pg MCHC 33 (30-34) % RDW 14.4 (13.2-15.2) % Plt Count 343 (140-440) K/mm3 Lymph % (Auto) 23.7 (13.4-35.0) % [place] % (Auto) 5.6 (0.0-7.3) % Eos % (Auto) 1.8 (0.0-4.3) % Baso % (Auto) 0.9 (0.0-1.8) % Lymph # 1.6 (1.2-5.4) K/mm3 [place] # 0.4 (0.0-0.8) K/mm3 Eos # 0.1 (0.0-0.4) K/mm3 Baso # 0.1 (0.0-0.1) K/mm3 Seg Neutrophils % 68.0 (40.0-70.0) % Seg Neutrophils # 4.7 (1.8-7.7) K/mm3 Sodium 140 (137-145) mmol/L Potassium 3.7 (3.6-5.0) mmol/L Chloride 99.8 (98-107) mmol/L Carbon Dioxide 24 (22-30) mmol/L Anion Gap 20 mmol/L BUN 12 (7-17) mg/dL Creatinine 0.7 (0.7-1.2) mg/dL Estimated GFR > 60 ml/min BUN/Creatinine Ratio 17 % Glucose 126 H (65-100) mg/dL Calcium 9.7 (8.4-10.2) mg/dL Total Bilirubin 0.60 (0.1-1.2) mg/dL AST 24 (5-40) units/L ALT 8 (7-56) units/L Alkaline Phosphatase 97 (35-129) units/L Total Creatine Kinase 68 (30-135) units/L Troponin T < 0.010 (0.00-0.029) ng/mL Total Protein 8.4 H (6.3-8.2) g/dL Albumin 4.5 (3.9-5) g/dL Albumin/Globulin Ratio 1.2 % - EKG Data -: EKG Interpreted by [place] EKG shows normal: sinus rhythm Rate: normal - EKG Data 02/28/19 16:34 The EKG today shows a sinus rhythm, 69 bpm, normal axis, the QTC is 431 ms, there is high left ventricular voltage, there is low voltage in the lateral leads, the EKG is abnormal, it is not consistent with ST elevation myocardial infarction, it is unchanged from prior EKG from 08/09/2018. - Radiology Data Radiology results: report reviewed, image reviewed Print Report Referring Physician: MARY MITCHELL Patient Name: BAILEE INTERIANO Date of : 1965 Sex: Female Report Date: 2019-02-28 Report Status: Finalized Findings [facility] [address] [place] [address] Cat Scan Report Signed Patient: BAILEE INTERIANO MR#: [id number] : 1965 Acct:[id number] Age/Sex: 53 / F ADM Date: 02/28/19 Loc: ED Attending Dr: Ordering Physician: MARY MITCHELL NP Date of Service: 02/28/19 Procedure(s): CT head/brain wo con Accession Number(s): [id number] cc: MARY MITCHELL NP CT HEAD WITHOUT CONTRAST INDICATION : headache. TECHNIQUE: Axial imaging performed from the skull apex through the skull base without the use of contrast. Sagittal and coronal reformatted images. All CT scans at this location are performed using CT dose reduction for ALARA by means of automated exposure control. COMPARISON: 08/09/2018 FINDINGS: Parenchyma: Chronic encephalomalacia in the bifrontal regions and right parietal lobe are again noted. Mild nonspecific chronic white matter changes are stable. The remaining brain parenchyma is within normal limits. No evidence for acute infarct, hemorrhage, mass or extra-axial fluid collection. Ventricles: Ventricles are normal in size and appear symmetric. Bones: No acute osseous abnormality. Sinuses: Sinuses and mastoid air cells are clear. Soft tissues: Soft tissues including the orbits appear normal. IMPRESSION: Chronic findings as described above which are unchanged since 08/09/2018. Signer Name: Yuniel Fualkner Jr, MD Signed: 02/28/2019 3:03 PM Workstation Name: [id number] Transcribed By: TTR Dictated By: YUNIEL FAULKNER JR, MD Electronically Authenticated By: YUNIEL FAULKNER JR, MD Signed Date/Time: 02/28/19 1503 DD/ 1501 TD/TT: Critical care attestation.: If time is entered above; I have spent that time in minutes in the direct care of this critically ill patient, excluding procedure time. ED Disposition Clinical Impression: History of headache, HTN (hypertension), Medication refill Disposition: DC-01 TO HOME OR SELFCARE Is pt being admited?: No Does the pt Need Aspirin: No Condition: Stable Instructions: Hypertension (ED) Additional Instructions: Take the medications as prescribed and directed. Recommend the patient avoid consumption of marijuana, alcohol, and tobacco. Recommend patient follow up with the primary care doctor or neurologist within the next 2-3 weeks. Return to the emergency room right away with projectile vomiting, change in mental sta tus, confusion, inability to tolerate liquid feeds, new, worsening or different symptoms not present on initial emergency room evaluation. Long-term complications of hypertension and elevated blood pressure includes stroke, heart attack, disability, paralysis, loss of quality of life. Therefore, it is very important to remain compliant with blood pressure medications. Prescriptions: AtorvaSTATin [Lipitor] 40 mg PO QHS #30 tab amLODIPine 10 mg PO DAILY #30 tab Aspirin [Aspirin BABY CHEW TAB] 81 mg PO DAILY #30 tab.chew Losartan [Cozaar] 100 mg PO QDAY #30 tablet Referrals: JONATHAN ADDISON MD [Referring] - 3-5 Days RBAYDON UNGER MD [Staff Physician] - 3-5 Days JAVED FRANCO MD [Staff Physician] - 3-5 Days [facility] [Provider Group] - 3-5 Days Forms: Work/School Release Form(ED)
--- NOTE | 2019-02-28 15:07 | Cat Scan Report ---
CT HEAD WITHOUT CONTRAST INDICATION : headache. TECHNIQUE: Axial imaging performed from the skull apex through the skull base without the use of con trast. Sagittal and coronal reformatted images. All CT scans at this location are performed using C T dose reduction for ALARA by means of automated exposure control. COMPARISON: 08/09/2018 FINDINGS: Parenchyma: Chronic encephalomalacia in the bifrontal regions and right parietal lobe are again note d. Mild nonspecific chronic white matter changes are stable. The remaining brain parenchyma is within normal limits. No evidence for acute infarct, hemorrhage, mass or extra-axial fluid collection. Ventricles: Ventricles are normal in size and appear symmetric. Bones: No acute osseous abnormality. Sinuses: Sinuses and mastoid air cells are clear. Soft tissues: Soft tissues including the orbits appear normal. IMPRESSION: Chronic findings as described above which are unchanged since 08/09/2018. Signer Name: Yuniel Faulkner Jr, MD Signed: 02/28/2019 3:03 PM Workstation Name: [id number]
[2019-02-28 16:20] LABS: Basophils # (Auto) 0.1 K/mm3 (0.0-0.1); Basophils % (Auto) 0.9 % (0.0-1.8); Eosinophils # (Auto) 0.1 K/mm3 (0.0-0.4); Eosinophils % (Auto) 1.8 % (0.0-4.3); Hematocrit 43.4 % (30.3-42.9); Hemoglobin 14.3 gm/dl (10.1-14.3); Lymphocytes # (Auto) 1.6 K/mm3 (1.2-5.4); Lymphocytes % (Auto) 23.7 % (13.4-35.0); Mean Corpuscular HGB Conc 33 % (30-34); Mean Corpuscular Volume 88 fl (79-97); Monocytes # (Auto) 0.4 K/mm3 (0.0-0.8); Monocytes % (Auto) 5.6 % (0.0-7.3); Platelet Count 343 K/mm3 (140-440); Red Blood Count 4.94 M/mm3 (3.65-5.03); Red Cell Distribution Width 14.4 % (13.2-15.2)
[2019-02-28 16:33] LABS: Alanine Aminotransferase 8 units/L (7-56); Albumin 4.5 g/dL (3.9-5); BUN/Creatinine Ratio 17; Blood Urea Nitrogen 12 mg/dL (7-17); Calcium 9.7 mg/dL (8.4-10.2); Hemolysis Index 9
[2019-02-28] MEDS ORDERED: amLODIPine 10 MG TAB PO STA (16:33)
[2019-02-28] MEDS ORDERED: LOSARTAN 50 MG TAB PO STA (16:33)
[2019-02-28 17:00] VITALS: BP 138/82
== END 2019-02-28 17:57 | disposition home or self-care (01) ==
LOC: ED 14:04
DX: I10 Essential (primary) hypertension (principal); R51 Headache; Z76.0 Encounter for issue of repeat prescription; F17.200 Nicotine dependence, unspecified, uncomplicated
CPT/HCPCS: 36415; 70450; 80053; 82550; 84484; 85025; 93005; 93010; 96365; 96375; 99285; J1200; J2765; J3475

== ENCOUNTER 2019-06-04 06:24 | Emergency (ER) | payer SELFPAY ==
[2019-06-04] MEDS ORDERED: BUTALB/ACETAMINOPHEN/CAFFEINE TAB PO ONE (07:12)
[2019-06-04] MEDS ORDERED: cloNIDine 0.2 MG TAB PO ONE (07:12)
--- NOTE | 2019-06-04 07:20 | Emergency Department Report ---
HPI - General Chief Complaint: High BP Time Seen by Provider: 06/04/19 07:01 - [facility] HPI: Room 4 The patient is a 53-year-old female present with a chief complaint of headache. Patient states for 1 week she has had intermittent frontal headache. Patient denies recent trauma, fever nausea or vomiting. Patient currently gives her pain a score of 9/10. Patient states she is been out of her blood pressure medication for 1 month ED Past Medical Hx - Past Medical History Hx Hypertension: Yes - Surgical History Past Surgical History?: No - Family History Family history: no significant - Social History Smoking Status: Current Every Day Smoker (2/3 pack/day) Substance Use Type: None (Denies illicit drug use), Alcohol (Occasional) - Medications Home Medications: Home Medications Medication Instructions Recorded Confirmed Last Taken Type Losartan Potassium 100 mg PO QDAY #30 tablet 05/12/18 08/09/18 08/08/18 Rx Aspirin [Aspirin BABY CHEW TAB] 81 mg PO DAILY #30 tab.chew 02/28/19 Unknown Rx AtorvaSTATin [Lipitor] 40 mg PO QHS #30 tab 02/28/19 Unknown Rx Losartan [Cozaar] 100 mg PO QDAY #30 tablet 02/28/19 Unknown Rx amLODIPine 10 mg PO DAILY #90 tab 06/04/19 Unknown Rx ED Review of Systems ROS: Stated complaint: MIGRAINE/HYPERTENSION Other details as noted in HPI Constitutional: denies: fever Eyes: denies: eye pain ENT: denies: throat pain Respiratory: no symptoms reported Cardiovascular: denies: chest pain Endocrine: no symptoms reported Gastrointestinal: denies: nausea, vomiting Neurological: headache Physical Exam - Physical Exam Vital Signs: Vital Signs 06/04/19 06/04/19 06:29 06:40 Temperature 97.8 F 98.1 F Pulse Rate 82 75 Respiratory 18 19 Rate Blood Pressure 197/109 181/99 [Right] O2 Sat by Pulse 96 98 Oximetry Physical Exam: GENERAL: The patient is well-developed well-nourished female lying on stretcher not appearing to be in acute distress. [] HEENT: Normocephalic. Atraumatic. Extraocular motions are intact. Patient has moist mucous membranes. NECK: Supple. No nuchal rigidity CHEST/LUNGS: Clear to auscultation. There is no respiratory distress noted. HEART/CARDIOVASCULAR: Regular. There is no tachycardia. There is no gallop rub or murmur. ABDOMEN: Abdomen is soft, nontender. Patient has normal bowel sounds. There is no abdominal distention. SKIN: There is no rash. There is no edema. There is no diaphoresis. NEURO: The patient is awake, alert, and oriented. The patient is cooperative. The patient has no focal neurologic deficits. The patient has normal speech. Cranial nerves II through XII grossly intact, no drift MUSCULOSKELETAL: There is no evidence of acute injury. ED Course Vital Signs 06/04/19 06/04/19 06:29 06:40 Temperature 97.8 F 98.1 F Pulse Rate 82 75 Respiratory 18 19 Rate Blood Pressure 197/109 181/99 [Right] O2 Sat by Pulse 96 98 Oximetry ED Medical Decision Making - Radiology Data Radiology results: report reviewed (CT head), image reviewed (CT head) Findings [facility] [address] [place] [address] Cat Scan Report Signed Patient: BAILEE INTERIANO MR#: [id number] : 1965 Acct:[id number] Age/Sex: 53 / F ADM Date: 06/04/19 Loc: ED Attending Dr: Ordering Physician: RAFAELA DIAZ MD Date of Service: 06/04/19 Procedure(s): CT head/brain wo con Accession Number(s): [id number] cc: RAFAELA DIAZ MD NONENHANCED CT SCAN OF THE HEAD: INDICATION / CLINICAL INFORMATION: 53 years Female; MAIN: Hypertension, headache INTERMITENLY FOR 2 WEEKS. TECHNIQUE: Routine CT head without contrast. All CT scans at this location are performed using CT dose reduction for ALARA by means of automated exposure control. COMPARISON: CT scan of the head from 02/28/2019 and MRI scan from 08/09/2018 FINDINGS: BRAIN / INTRACRANIAL CONTENTS: No acute hemorrhage, mass effect, midline shift, hydrocephalus, or acute, large territorial infarct. As seen in the previous imaging studies, encephalomalacia is seen in the frontal sinus bilaterally involving superior frontal gyri and right temporal lobe. Confluent periventricular low-attenuation areas seen due to chronic vascular disease. This remains unchanged. CRANIOCERVICAL JUNCTION: No significant abnormality. ORBITS: Bony remodeling is seen along the left medial wall. Left medial rectus muscle is deviating medially. SINUSES / MASTOIDS: No significant abnormality of the visualized paranasal sinuses or mastoid air cells. ADDITIONAL FINDINGS: Small left frontal scalp lipoma IMPRESSION: No acute hemorrhage or acute parenchymal lesion CT findings unchanged Signer Name: Marcos Early MD Signed: 06/04/2019 7:52 AM Workstation Name: [id number] Transcribed By: BS Dictated By: Marcos Gonzales MD Electronically Authenticated By: Marcos Gonzales MD Signed Date/Time: 06/04/19 075 DD/ 0739 TD/TT: - Differential Diagnosis Hypertensive urgency, intracranial hemorrhage, hypertensive crisis Critical care attestation.: If time is entered above; I have spent that time in minutes in the direct care of this critically ill patient, excluding procedure time. ED Disposition Clinical Impression: Hypertension, Headache Disposition: DC-01 TO HOME OR SELFCARE Is pt being admited?: No Does the pt Need Aspirin: No Condition: Stable Instructions: Hypertension (ED) Additional Instructions: Return to the emergency department should you develop worsening symptoms, inability to tolerate food or liquids, high fever or any other concerns Prescriptions: amLODIPine 10 mg PO DAILY #90 tab Referrals: [facility] [Outside] - 3-5 Days Time of Disposition: 08:59
--- NOTE | 2019-06-04 07:56 | Cat Scan Report ---
NONENHANCED CT SCAN OF THE HEAD: INDICATION / CLINICAL INFORMATION: 53 years Female; MAIN: Hypertension, headache INTERMITENLY FOR 2 WEEKS. TECHNIQUE: Routine CT head without contrast. All CT scans at this location are performed using CT dos e reduction for ALARA by means of automated exposure control. COMPARISON: CT scan of the head from 02/28/2019 and MRI scan from 08/09/2018 FINDINGS: BRAIN / INTRACRANIAL CONTENTS: No acute hemorrhage, mass effect, midline shift, hydrocephalus, or acu te, large territorial infarct. As seen in the previous imaging studies, encephalomalacia is seen in the frontal sinus bilaterally in volving superior frontal gyri and right temporal lobe. Confluent periventricular low-attenuation areas seen due to chronic vascular disease. This remains un changed. CRANIOCERVICAL JUNCTION: No significant abnormality. ORBITS: Bony remodeling is seen along the left medial wall. Left medial rectus muscle is deviating me dially. SINUSES / MASTOIDS: No significant abnormality of the visualized paranasal sinuses or mastoid air marleny ls. ADDITIONAL FINDINGS: Small left frontal scalp lipoma IMPRESSION: No acute hemorrhage or acute parenchymal lesion CT findings unchanged Signer Name: Marcos Early MD Signed: 06/04/2019 7:52 AM Workstation Name: [id number]
[2019-06-04] MEDS ORDERED: SODIUM CHLORIDE 0.9% 1000 ML 1,000 ML IV ONE (09:50)
[2019-06-04 13:32] VITALS: BP 147/75
== END 2019-06-04 12:00 | disposition home or self-care (01) ==
LOC: ED 06:24
DX: I10 Essential (primary) hypertension (principal); Z79.899 Other long term (current) drug therapy
CPT/HCPCS: 70450; 93005; 93010; 99284; J7030